=== PATIENT | female | born 1985 | race Caucasian/White ===

== ENCOUNTER 2017-01-10 14:08 | Inpatient (IN) | payer BC, OTHER ==
[~2017-01-10] VITALS: Ht 162.6 cm; Wt 79.4 kg
[2017-01-10 20:04] LABS: *AMPHETAMINE, URINE NEGATIVE (NEGATIVE); *BARBITURATE, URINE NEGATIVE (NEGATIVE); *CANNABINOID, URINE NEGATIVE (NEGATIVE); *COCCAINE, URINE NEGATIVE (NEGATIVE); *OPIATE, URINE NEGATIVE (NEGATIVE); *PHENCYCLIDINE SCREEN,URINE NEGATIVE (NEGATIVE)
--- NOTE | 2017-01-10 20:20 | NUR ---
Pre-Admission Note Pt is a 31 year old female, seen at intake, AAOx4, no SOB with moderate anxiety noted at this time. Discussed with Patient admission policies of t unit. Patient is coherent and able to respond to questions appropriately. Pt is ambulatory with steady gait. Vital signs taken and as follows: BP126/82, pulse 125, temp 97.2, R 18, SpO2 98% room air. Pt verbalized instructions and teaching regarding disposal of narcotic and other controlled home meds, unit protocols such as taking VS Q4H and handling and disposal of contraband. Will continue with admission upon pts arrival on the unit.
--- NOTE | 2017-01-10 20:30 | NUR ---
Admission Note Pt is a 31 year old female admitted to [facility] on 01/10/2017 for ETOH/Benzo dependence, arrived on the unit at 2030. NKA, reports seizure hx 1.5 months ago due to withdrawal. Upon admission, CIWA 14, BP126/82, pulse 125, temp 97.2, R 18, SpO2 98% room air, weight 175lb, height 54. Pt reports she does not have a primary care provider. Pt denies being hospitalized within the past 30 days. Pt is able to understand and respond to all questions pertaining to her hospitalization. Substance Abuse History is as Follows: 1. Vodka 3 pints/daily, last intake of 3 pints on 01/09/2017, at this rate for 4 months. Pt has been using since age 11. 2. Tequila 1 pint/daily, last intake of few pints on 01/07/2017, at this rate for 4 months. Pt has been using since age 11. 3. Xanax 6-8mg/daily, last intake of 6mg on 01/09/2017, at this rate for 4 months. Pt has been using since age 16. Pt relapsed 4 months ago. Pt reports experiencing s/s of "tremors, anxiety, agitation, restlessness, skin sweaty, n/v" while withdrawing. Pt reports longest sober period was for 1.5 years from 2008 2010. Pt reports being in total of 10 treatments, only recalls 3: [place], [place] for 60 days in Apr 2013, [facility] for 30 days in August 2014 and [facility] for 90 days in May - August 2016. Pt reports she has hx of meth/heroin use. Pt reports smoking 1 pack of cigarettes daily. PMH: Anxiety, Depression and Bipolar Psychosis. Pt brought medications upon admission, medications reconciled. Pt states unknown medical family hx due to being adopted. Upon assessment, is AAOx4, PERRLA, presents with anxiety/irritability, inability to sit still, tremors visible, skin flushed/clammy, mild nausea with mild pins/needles sensations, respirations even/unlabored, denies SOB/chest pain, skin is intact. Pt denies suicidal ideations. Educational information provided and left at bedside , pt oriented to room and encouraged to notify staff with any concerns. Safety measures in place, call light within reach, side rails up x2, bed locked and in low position. Will continue to monitor.
[2017-01-10 20:39] LABS: *URINE HCG, QUAL NEGATIVE (NEGATIVE)
--- NOTE | 2017-01-10 21:16 | NUR ---
Medication Administration Pt presents with presents with anxiety/irritability, inability to sit still, tremors visible, skin flushed/clammy, mild nausea with mild pins/needles sensations. SAY 14 - MD Aware Ativan 2mg x1 and scheduled Gabapentin 300mg administered as ordered per MD.
[2017-01-10 21:31] VITALS: BP 126/82
[2017-01-10 21:35] LABS: BASOPHILS % (AUTO) 0.2 % (0.0-2.0); EOSINOPHILS # (AUTO) 0.1 K/uL (0.0-0.7); HEMOGLOBIN 13.9 G/DL (12.0-16.0); LYMPHOCYTES # (AUTO) 1.9 K/UL (0.8-4.8); LYMPHOCYTES % (AUTO) 17.8 % (20.5-51.5); MEAN CORPUSCULAR HEMOGLOBIN 31.3 UUG (27.0-31.0); MEAN CORPUSCULAR HGB CONC 35 g/dL (32.0-37.0); MEAN CORPUSCULAR VOLUME 90.3 FL (81.0-99.0); MONOCYTES # (AUTO) 0.6 K/UL (0.1-1.30); MONOCYTES % (AUTO) 5.6 % (0.0-11.0); NEUTROPHILS # (AUTO) 7.9 K/UL (1.8-8.9); NEUTROPHILS % (AUTO) 75.4 % (38.5-71.5); PLATELET COUNT (AUTO) 291 K/UL (150-450); RED BLOOD CELL COUNT(AUTO) 4.43 MIL/UL (4.2-5.4); WHITE BLOOD COUNT (AUTO) 10.5 K/UL (4.0-11.2)
[2017-01-10 21:54] LABS: ETHANOL < 3 MG/DL (0-0)
[2017-01-10 21:58] LABS: ALANINE AMINOTRANSFERASE 22 U/L (14-59); ALKALINE PHOSPHATASE 90 U/L (50-136); AMYLASE 39 U/L (25-115); ASPARTATE AMINOTRANSFERASE 16 U/L (15-37); BILIRUBIN,TOTAL 0.2 mg/dL (0.2-1.0); CARBON DIOXIDE 30 mmol/L (21-32); CHLORIDE 105 mmol/L (98-107); GLUCOSE 118 mg/dL (74-106); MAGNESIUM 1.8 mg/dL (1.8-2.4); POTASSIUM 3.5 mmol/L (3.5-5.1); TOTAL PROTEIN, SERUM 7.7 g/dL (6.4-8.2); UREA NITROGEN, BLOOD 9 mg/dL (7-18)
--- NOTE | 2017-01-10 22:16 | NUR ---
Patient Update Upon reassessment, pt is in bed, sleeping, eyes closed, respirations even/unlabored. Safety measures in place. Will continue to monitor.
[2017-01-10] MEDS ORDERED: CLON0.1T PO (22:52)
[2017-01-10] MEDS ORDERED: METH-406 PO (22:52)
[2017-01-10] MEDS ORDERED: RISP4TAB17 PO (22:52)
[2017-01-10] MEDS ORDERED: QUET50TA PO (22:52)
[2017-01-10] MEDS ORDERED: PROP10TA10 PO (22:52)
[2017-01-10] MEDS ORDERED: ONDA4TAB8 PO (22:52)
[2017-01-10] MEDS ORDERED: BUSP10TA3 PO (22:52)
[2017-01-11] VITALS: BP 144/86
--- NOTE | 2017-01-11 | NUR ---
Vital Signs BP 144/86, pulse 97, resp 16, SpO2 99% room air, temp 98.2, no reports of pain. CIWA deferred due to pt sleeping, to assess while pt is awake as ordered. Safety measures in place. Will continue to monitor.
[2017-01-11 04:00] VITALS: BP 123/70
--- NOTE | 2017-01-11 04:00 | NUR ---
Vital Signs BP 123/70, pulse 102, resp 16, SpO2 97% room air, temp 97.8, no pain 0/10 CIWA deferred d/t pt sleeping to assess while pt is awake as ordered. Safety measures in place. Will continue to monitor.
--- NOTE | 2017-01-11 07:00 | NUR ---
End of Shift Pt is a 31 year old female admitted for ETOH/Benzo dependence, place on 5 day Ativan taper. Upon admission, pt reported consuming Vodka 3 pints/daily, Tequila 1 pint/daily, and Xanax 6-8mg/daily. Pt reports she relapsed 4 months ago. PMH: Anxiety, Depression and Bipolar Psychosis. NKA, regular diet, fall/seizure precautions (pt reports seizure hx 1.5 months ago d/t withdrawal) and full code. During shift, Pt presented with anxiety/irritability, inability to sit still, tremors visible, skin flushed/clammy, mild nausea with mild pins/needles sensations with CIWA 14 MD made aware. Ativan 2mg x1 and scheduled Gabapentin 300mg administered as ordered. Upon reassessment, pt was noted to be sleeping, respirations even/unlabored. Pt refused scheduled Vitamin B1 inj 100mg. Risks/Benefits explained, education provided x3, pt continued to refuse. Pt slept for 7 hours, intake of 500 ml PO, voids x1 and stool x0. Safety measures in place, call light within reach, side rails up x2, bed locked and in low position. Endorsed to day shift nurse.
--- NOTE | 2017-01-11 07:25 | NUR ---
Start of Shift Aluminum Siding Installer received report on 31 year old female admitted 01/10/17 for ETOH and Benzodiazepine detoxification. Pt reports NKA, full code and regular diet. PMH of anxiety, depression and bipolar. Starting Ativan taper today. Last CIWA of 14 recorded at 2030. Pt had a OT order for Ativan, 2mg, on retail shift leader, medication was effective as pt slept thru the night. Aluminum Siding Installer encounters pt in room resting with eyes closed. Respiration even and unlabored, rise and fall of chest noted. Bed in low position, wheels locked, side rails up x2 and call light within reach.
[2017-01-11 08:50] VITALS: BP 122/72
[2017-01-11 12:30] VITALS: BP 109/77
[2017-01-11 16:30] VITALS: BP 129/85
--- NOTE | 2017-01-11 18:44 | NUR ---
End of Shift Engine Oiler provided report on 31 year old female admitted 01/10/17 for ETOH and Benzodiazepine detoxification. Pt reports NKA, full code and regular diet. PMH of anxiety, depression and bipolar. Pt started Ativan taper today. Last CIWA of 8 recorded at 1600. Pt with no PRN today. Pt has been irritated, demanding and entitled, loud when demanding her needs be met. Bed in low position, wheels locked, side rails up x2 and call light within reach
[2017-01-11 20:00] VITALS: BP 134/96
--- NOTE | 2017-01-11 20:00 | NUR ---
Start of Shift Pt is a 31 year old female admitted for ETOH/Benzo dependence, place on 5 day Ativan taper. Upon admission, pt reported consuming Vodka 3 pints/daily, Tequila 1 pint/daily, and Xanax 6-8mg/daily. Pt reports she relapsed 4 months ago. PMH: Anxiety, Depression and Bipolar Psychosis. NKA, regular diet, fall/seizure precautions (pt reports seizure hx 1.5 months ago d/t withdrawal) and full code. Upon assessment, pt presents with anxiety, reports body aches, chills, skin flushed, noted with moderate sweat, respirations unlabored/even, denies SOB/chest pain, medications due. Safety measures in place, call light within reach, side rails up x2, bed locked and in low position. Will continue to monitor.
--- NOTE | 2017-01-11 21:27 | NUR ---
Nursing Note/PRN Administration Pt is irritated, agitated, loud when demanding her requests to be made. Pt redirected. Pt requests aid to help her sleep. Seroquel 50mg PRN administered. Safety measures in place, Will continue to monitor.
--- NOTE | 2017-01-11 22:27 | NUR ---
PRN Reassessment Pt is sleeping, eyes closed in bed, respirations even/unlabored Safety measures in place, will continue to monitor
[2017-01-12] VITALS: BP 125/84
--- NOTE | 2017-01-12 | NUR ---
Vital Signs BP 125/84, pulse 96, resp 18, SpO2 98% room air, temp 98.3, no pain 0/10 CIWA deferred d/t pt sleeping to assess while pt is awake as ordered. Safety measures in place. Will continue to monitor.
[2017-01-12 04:00] VITALS: BP 106/73
--- NOTE | 2017-01-12 04:00 | NUR ---
Vital Signs BP 106/73, pulse 92, resp 16, SpO2 95% room air, temp 98.2, no pain 0/10 CIWA deferred d/t pt sleeping to assess while pt is awake as ordered. Safety measures in place. Will continue to monitor.
--- NOTE | 2017-01-12 07:00 | NUR ---
End of Shift Pt is a 31 year old female admitted for ETOH/Benzo dependence, place on 5 day Ativan taper. Upon admission, pt reported consuming Vodka 3 pints/daily, Tequila 1 pint/daily, and Xanax 6-8mg/daily. Pt reports she relapsed 4 months ago. PMH: Anxiety, Depression and Bipolar Psychosis. NKA, regular diet, fall/seizure precautions (pt reports seizure hx 1.5 months ago d/t withdrawal) and full code. During shift, pt presented with anxiety, reports body aches, chills, skin flushed, noted with moderate sweat - scheduled taper medications administered, CIWA 8. Pt was irritated, agitated, loud when demanding her requests to be made. Pt redirected, Seroquel 50mg PRN administered. Pt slept for 6 hours, intake of 1539 ml PO, voids x1 and stool x0. Safety measures in place, call light within reach, side rails up x2, bed locked and in low position. Endorsed to day shift nurse. Addendum: 01/12/17 at 0714 by MICHELLE JAVED RN Correction: Pt is placed on Modified Ativan taper.
--- NOTE | 2017-01-12 07:20 | NUR ---
Start of Shift Engine Emission Technician received report on 31 year old female admitted 01/10/17 for ETOH and Benzodiazepine detoxification. Pt reports NKA, full code and regular diet. PMH of anxiety, depression and bipolar. Pt on a shortened Ativan taper, tolerating well. Last CIWA of 8 recorded by night nurse. Pt received Seroquel PRN for insomnia and slept for 6 hours. Engine Emission Technician encounters pt in room resting with eyes closed. Respiration even and unlabored, rise and fall of chest noted. Bed in low position, wheels locked, side rails up x2 and call light within reach.
[2017-01-12 08:13] VITALS: BP 131/78
[2017-01-12 11:08] LABS: HEPATITIS B SURFACE AG Negative (Negative)
[2017-01-12 12:38] VITALS: BP 123/85
[2017-01-12 16:30] VITALS: BP 128/87
--- NOTE | 2017-01-12 18:51 | NUR ---
End of Shift Sports Marketing Coordinator provided report on 31 year old female admitted 01/10/17 for ETOH and Benzodiazepine detoxification. Pt reports NKA, full code and regular diet. PMH of anxiety, depression and bipolar. Pt on a shortened Ativan taper, tolerating well. Last CIWA of 5 recorded at 1600. No PRN medication provided on this shift. Pt is cooperative and makes needs known. Can be demanding, entitled and becomes easily irritable. Bed in low position, wheels locked, side rails up x2 and call light within reach.
[2017-01-12 20:00] VITALS: BP 122/79
--- NOTE | 2017-01-12 20:00 | NUR ---
START OF SHIFT Pt is a 31 y/o female admitted on 01/10/17 for ETOH and benzos. Pt is here for vodka 3 pints daily, tequila 1 pint daily, and xanax 6-8 mg daily. Pt if full code, regular diet, NKA, fall and seizure precautions with hx of seizure 1.5 months ago r/t withdrawal. Pt reports PMH of anxiety, depression, bipolar with psychosis. Pt was on a 5 day Ativan taper, but switched to modified Ativan taper on 01/11/17. Pt received no PRNs during day shift. Upon assessment, pt is complaining of body aches, mild nausea, moderate anxiety, chills, fatigue. Respirations 16, even and unlabored. Denies vomiting or diarrhea. Denies chest pain or SOB. Medications due. Safety measures in place. Call light within reach. Will continue to monitor.
--- NOTE | 2017-01-12 21:07 | NUR ---
PRN SEROQUEL PRN Seroquel given for sleep aid per client request. Safety measures in place. Will continue to monitor.
--- NOTE | 2017-01-12 22:07 | NUR ---
PRN SEROQUEL REASSESSMENT Upon reassessment, pt is in bed with eyes closed, resting. Respirations 16, even and unlabored. Safety measures in place. Will continue to monitor.
[2017-01-13] VITALS: BP 125/86
--- NOTE | 2017-01-13 | NUR ---
VITAL SIGNS BP 125/86, P 88, R 17, 02 99%, T 97.6, PA 0/10 CIWA deferred. Pt is laying in bed with eyes closed, to be reassessed when patient is awake per MD order. Respirations are even and unlabored. Safety measures in place. Call light within reach.
[2017-01-13 04:00] VITALS: BP 106/69
--- NOTE | 2017-01-13 04:00 | NUR ---
VITAL SIGNS BP 106/69, P 92, R 18, 02 96%, T 97.8, PA 0/10 CIWA deferred. Pt is laying in bed with eyes closed, to be reassessed when pt is awake per MD order. Respirations are even and unlabored. Safety measures in place. Call light within reach. Will continue to monitor.
--- NOTE | 2017-01-13 07:00 | NUR ---
END OF SHIFT Pt is a 31 y/o female admitted on 01/10/17 for ETOH and benzos. Pt is here for vodka 3 pints daily, tequila 1 pint daily, and xanax 6-8 mg daily. Pt if full code, regular diet, NKA, fall and seizure precautions with hx of seizure 1.5 months ago r/t withdrawal. Pt reports PMH of anxiety, depression, bipolar with psychosis. Pt was on a 5 day Ativan taper, but switched to modified Ativan taper on 01/11/17. During shift pt complained of body aches, mild nausea, moderate anxiety, chills, fatigue. Scheduled medications and PRN Seroquel administered, effective in management of s/s AEB CIWA 4. Pt slept 7 hours. Intake 1710 ml, void x 2, stool x 0. Safety measures in place. Call light within reach. Endorsed to day shift nurse.
--- NOTE | 2017-01-13 07:30 | NUR ---
START OF SHIFT Pt is a 31 yr old female, AA&Ox4. Pt was admitted on 01/10/17 for ETOH/Benzo Dependence and is on modified Ativan taper as ordered. medication monster well. Pt received Seroquel PRN during the night and slept for 7 hrs. Pt is c/o anxiety with agitation. Skin is intact, warm and dry to touch. Flat affect is observed. No tremors seen or felt. Pt denies any n/v. Encouraged increase fluid intake. Safety precautions are observed. Call light is within reach. Will continue to monitor.
[2017-01-13 08:00] VITALS: BP 116/72
[2017-01-13 12:00] VITALS: BP 124/78
[2017-01-13] MEDS ORDERED: BACL10TA PO (15:34)
[2017-01-13] MEDS ORDERED: RISP2TAB5 PO (15:34)
[2017-01-13] MEDS ORDERED: CLON0.1T14 PO (15:34)
[2017-01-13] MEDS ORDERED: GABA-534 PO (15:34)
[2017-01-13] MEDS ORDERED: IBUP-1953 PO (15:34)
[2017-01-13] MEDS ORDERED: QUET100T PO (15:34)
[2017-01-13] MEDS ORDERED: BENZ0.5T3 PO (15:34)
--- NOTE | 2017-01-13 15:43 | NUR ---
REFUSED MEDICATION Pt refused to take Clonidine 0.1mg and Neurontin 600mg PO as scheduled at 1500. Pt was educated on medication regimen. Pt was able to verbalize understanding but continue to refuse medication.
[2017-01-13 16:00] VITALS: BP 114/81
--- NOTE | 2017-01-13 17:05 | NUR ---
REFUSED MEDICATION Pt refused to take Cogentin and BuSpar PO as scheduled at 1700. Pt was educated on medication regimen. Pt was able to verbalize understanding but continue to refuse medication.
--- NOTE | 2017-01-13 17:11 | NUR ---
ENDORSE PT TO RN TO CONTINUE WITH CARE. PT IS IN STABLE CONDITION
--- NOTE | 2017-01-13 17:12 | NUR ---
Endorsement SBAR report rcv'd. Pt is stable. Will continue to monitor pt.
--- NOTE | 2017-01-13 19:02 | NUR ---
End of shift note Pt was admitted for ETOH and benzo dependence. Pt had a PMHx of anxiety, depression, bipolar d/o and psychosis. Pt is on a modified ativant taper and tolerating well. Pt had a CIWA of 1 at 1600. Pt is eating 100% of meals. Pt had 1 BM and 4 voids during the shift. Pt has no complaints at this time. Attended most of groups, states that missed one d/t a migraine. Pt has no complaints at this time. Will endorse SBAR to oncoming shift.
--- NOTE | 2017-01-13 19:30 | NUR ---
START OF SHIFT Pt is a 31 yr old female, A/A & O x 4. Pt was admitted for ETOH/Benzo Dependence and is on modified Ativan taper as ordered. medication tolerating well. Pt received sleeping in room,arousable on approach. Anxious about going to smoke,wants to take her medications early and go to sleep. Last CIWA of 1 at 1600. Pt has no complaints at this time. PO fluids encouraged as tolerated.No s/s of acute distress noted,,all safety measures in place per hospital policy,Call light kept in reach. All needs met and attended. Will continue to monitor closely.
[2017-01-13 20:00] VITALS: BP 126/97
--- NOTE | 2017-01-13 20:35 | NUR ---
PRN MEDS PRN BACLOFEN AND SEROQUEL GIVEN ORDERED FOR MUSCLE SPASMS AND INSOMNIA RESPECTIVELY,PER PT REQUEST.WILL MONITOR.
--- NOTE | 2017-01-13 21:35 | NUR ---
PRN F/U PT IS IN BED,STATES FEELING BETTER,FALLING ASLEEP,DOES NOT WANT TO BE WOKEN UP FOR V/S.
--- NOTE | 2017-01-14 | NUR ---
V/S REFUSED,CIWA DEFERRED PT SLEEPING COMFORTABLY IN BED,BREATHING IS EVEN AND NON LABORED,NO S/S OF DISTRESS NOTED.CIWA DEFERRED DUE TO BEING ASLEEP.WILL CONTINUE TO MONITOR.
--- NOTE | 2017-01-14 04:00 | NUR ---
V/S REFUSED,CIWA DEFERRED PT SLEEPING COMFORTABLY IN BED,BREATHING IS EVEN AND NON LABORED,NO S/S OF DISTRESS NOTED.CIWA DEFERRED DUE TO BEING ASLEEP.WILL CONTINUE TO MONITOR.
--- NOTE | 2017-01-14 06:17 | NUR ---
END OF SHIFT Pt is a 31 yr old female, A/A & O x 4. Pt was admitted for ETOH/Benzo Dependence and is on modified Ativan taper as ordered,and is tolerating well. Last CIWA of 1 at 1999. PO fluids encouraged as tolerated.PRN Baclofen and Seroquel were given and were effective.Pt slept 7 hrs,fluid intake was 355 mls,voided x 2 .No s/s of acute distress noted,,all safety measures in place per hospital policy,Call light kept in reach. All needs met and attended. Will continue to monitor closely.
--- NOTE | 2017-01-14 07:21 | NUR ---
START OF SHIFT Received report from night nurse. 31 year old female patient admitted on 01/10/17 for ETOH and Xanax dependence. Pt has completed modified Ativan taper and is medically cleared for d/c. Pt did not present with acute s/s of withdrawal over night. CIWA 1 at 1999. Pt slept for 7 hours. PRN Baclofen and Seroquel administered and effective. V/S remain WNL. All needs met at this time. Pt is aware of discharge. Safety measures in place, will continue to monitor.
[2017-01-14 08:05] VITALS: BP 111/74
[2017-01-14 08:31] VITALS: BP 111/74
--- NOTE | 2017-01-14 09:40 | NUR ---
D/C NOTE Pt is A/O x4, Denies SI/HI or hallucinations. Pt is medically cleared for discharge, no s/s of acute withdrawals. Pt ambulates with a steady gait. All of pt belongings including home meds and prescription are in belonging bag. Pt is being accompanied by PLUMBING ENGINEERING DRAFTSPERSON to chair car driver to be transported to [facility] for rehab. CIWA is 2 due to mild anxiety and agitation. V/S remain stable and WNL. All needs met. Pt is stable.
== END 2017-01-14 09:40 | disposition other institution (70) | DRG 895 ==
LOC: EDSEX 19:36 → SRC 19:36
PROVIDERS: ADMIT Internal Medicine; ATTEND Internal Medicine
PROC: HZ2ZZZZ Detoxification Services for Substance Abuse Treatment (ICD-10-PCS; principal; 2017-01-10)
PROC: HZ41ZZZ Group Counseling for Substance Abuse Treatment, Behavioral (ICD-10-PCS; 2017-01-11)
PROC: HZ31ZZZ Individual Counseling for Substance Abuse Treatment, Behavioral (ICD-10-PCS; 2017-01-12)
DX: F10.230 Alcohol dependence with withdrawal, uncomplicated (principal); F31.60 Bipolar disorder, current episode mixed, unspecified; I15.9 Secondary hypertension, unspecified; F13.230 Sedative, hypnotic or anxiolytic dependence with withdrawal, uncomplicated; Y90.9 Presence of alcohol in blood, level not specified; F11.21 Opioid dependence, in remission; F17.210 Nicotine dependence, cigarettes, uncomplicated; Z59.0 Homelessness; Z59.1 Inadequate housing; Z81.8 Family history of other mental and behavioral disorders; Z79.899 Other long term (current) drug therapy; B19.20 Unspecified viral hepatitis C without hepatic coma; Z91.89 Other specified personal risk factors, not elsewhere classified
CPT/HCPCS: 36415; 70030-TC; 80307; 83735; 84703; 85025; 86580; 86592; 86705; 86803; 87340; 87806; 90732; A4663; G0480; J3411